=== PATIENT | female | born 1935 | race Caucasian/White ===

== ENCOUNTER → 2017-02-22 | Outpatient (CLI) | payer MEDICARE, BC ==
[2017-02-22 09:26] LABS: ABSOLUTE EOSINOPHILS # (AUTO) 0.1 10^3/uL (0.0-0.6); ABSOLUTE LYMPHOCYTES (AUTO) 1.1 10^3/uL (0.5-4.7); ABSOLUTE MONOCYTES (AUTO) 0.7 10^3/uL (0.1-1.4); ABSOLUTE NEUT (AUTO) 3.7 10^3/uL (1.7-8.2); BASOPHILS % (AUTO) 0.4 % (0-2); EOSINOPHILS % (AUTO) 2.3 % (0-6); HEMATOCRIT 46.5 % (36.0-47.0); HEMOGLOBIN 14.8 g/dL (12.0-15.5); HGB HCT DIFFERENCE -2.1; LYMPHOCYTES % (AUTO) 19.7 % (13-45); MEAN CORPUSCULAR HEMOGLOBIN 29.3 pg (27.0-33.4); MEAN CORPUSCULAR VOLUME 92 fl (80-97); MONOCYTES % (AUTO) 12.4 % (3-13); RED BLOOD COUNT 5.06 10^6/uL (3.72-5.28); RED CELL DISTRIBUTION WIDTH 13.9 % (11.5-14.0); SEGMENTED NEUTROPHILS % (AUTO) 65.2 % (42-78); WHITE BLOOD COUNT 5.6 10^3/uL (4.0-10.5)
[2017-02-22 09:58] LABS: ALANINE AMINOTRANSFERASE 20 U/L (9-52); ALBUMIN 3.8 g/dL (3.5-5.0); ALKALINE PHOSPHATASE 75 U/L (38-126); ANION GAP 9 (5-19); ASPARTATE AMINO TRANSFERASE 24 U/L (14-36); BILIRUBIN,DIRECT 0.3 mg/dL (0.0-0.4); BILIRUBIN,TOTAL 0.6 mg/dL (0.2-1.3); BLOOD UREA NITROGEN 20 mg/dL (7-20); CALCIUM 9.1 mg/dL (8.4-10.2); CARBON DIOXIDE 28 mmol/L (22-30); CHLORIDE 105 mmol/L (98-107); CHOLESTEROL 198.97 mg/dL (0-200); CREATININE RESULT 0.76 mg/dL (0.52-1.25); Direct HDL 76 mg/dL (>40); GLUCOSE 83 mg/dL (75-110); POTASSIUM 4.8 mmol/L (3.6-5.0); SODIUM 142.1 mmol/L (137-145); TOTAL PROTEIN 6.6 g/dL (6.3-8.2); TRIGLYCERIDES 78 mg/dL (<150)
[2017-02-22 10:09] LABS: DIRECT LDL 105 mg/dL (<100)
[2017-02-22 10:12] LABS: ERYTHROCYTE SEDIMENTATION RATE 3 mm/hr (0-30)
[2017-02-22 10:24] LABS: CARCINOEMBRYONIC ANTIGEN 1.9 ng/mL (<3.0)
== END ==
LOC: OD 08:37
PROVIDERS: ATTEND Internal Medicine
DX: R53.83 Other fatigue (principal); E78.5 Hyperlipidemia, unspecified; C18.9 Malignant neoplasm of colon, unspecified; M79.1 Myalgia
CPT/HCPCS: 36415; 80053; 80061; 82378; 84443; 85025; 85652

== ENCOUNTER → 2017-04-15 | Outpatient (CLI) | payer MEDICARE, BC ==
--- NOTE | 2017-04-15 13:42 | WOMENS IMAGING REPORT ---
EXAM DESCRIPTION: BONE DENSITY HIP/SPINE COMPLETED DATE/TIME: 04/15/2017 1:32 pm REASON FOR STUDY: OSTEOPROSIS; M81.0 M81.0 AGE-RELATED OSTEOPOROSIS W/O CURRENT PATHOLOGICAL FRAC COMPARISON: None. TECHNIQUE: Dual-Energy X-ray Absorptiometry (DEXA) of the AP Spine and Hip. LIMITATIONS: None. FINDINGS: LUMBAR SPINE: The bone mineral density (BMD) measured from L1-L4 in the AP projection correlates with a T-score of +0.1, which is normal as defined by the World Health Organization. Please note that the AP bone dens ity assessment includes vertebral body endplate and posterior element sclerosis HIP: The bone mineral density (BMD) measured in the left femoral neck at the hip correlates with a T-score of -2.7, which is osteoporotic as defined by the World Health Organization. IMPRESSION: 1. LUMBAR SPINE: Normal 2. HIP: Osteoporotic COMMENT: The World Health Organization defines low BMD as follows: T-score: Normal: Greater than -1.0 Osteopenia: Between -1.0 and -2.5 Osteoporosis: Less than -2.5 without fractures Established osteoporosis: Less than -2.5 with fractures In general, you may wish to consider: Diagnosis Treatment Follow-up DEXA Normal BMD Prevention 2-3 years Osteopenia Prevention/Therapy 1-2 years Osteoporosis Therapy Yearly TECHNICAL DOCUMENTATION: JOB ID: [id number]- All Rights Reserved
== END ==
LOC: WI 13:16
PROVIDERS: ATTEND Internal Medicine
DX: M81.0 Age-related osteoporosis without current pathological fracture (principal)
CPT/HCPCS: 77080

== ENCOUNTER → 2017-12-12 | Day surgery (SDC) | payer MEDICARE, BC ==
--- NOTE | 2017-12-13 14:18 | OPERATIVE REPORT E ---
Operative Report NAME: RODRÍGUEZ GAMA : 1935 AGE: 82Y DATE OF SURGERY: 12/12/2017 ROOM: PREOPERATIVE DIAGNOSIS: NEW CLUSTER OF MICROCALCIFICATIONS, BROAD BAND, UPPER OUTER QUADRANT, LEFT BREAST, 10 CM FROM THE NIPPLE. POSTOPERATIVE DIAGNOSIS: NEW CLUSTER OF MICROCALCIFICATIONS, BROAD BAND, UPPER OUTER QUADRANT, LEFT BREAST, 10 CM FROM THE NIPPLE. OPERATION: 1. Stereotactic mammotomy and multiple core biopsies, left breast. 2. Placement of clip marker. 3. Interpretation of intraoperative mammography and specimen radiograph. SURGEON: WALTER BRAVO M.D. ANESTHESIA: 1% lidocaine plain. COMPLICATIONS: None. ESTIMATED BLOOD LOSS: Minimal. DRAINS: None. TISSUE REMOVED OR ALTERED: Multiple cores, left breast. PROCEDURE: Patient brought from the waiting area to the stereotactic room in [facility] where the left breast was placed in compression. We approached the breast using a lateral direction. Target microcalcifications were easily localized as they occupied a large swath of breast parenchyma. The microcalcifications were localized, left breast exposed portion, prepped with Betadine and anesthetized with 1% plain lidocaine. A small hang was made in the skin and the Mammotome advanced to the appropriate depth. Pre and post fire film showed appropriate alignment between the tip of the Mammotome and the center of the microcalcification cluster. We completed approximately a 10-core biopsy in a circumferential fashion. Specimens were collected and placed on a CoreTrainer and imaged with the portable imaging device in the stereotactic room. This showed multiple microcalcifications acquired. We felt the sampling was sufficient and adequately represented the target tissue. A clip marker was placed uneventfully, and post clip marker deployment images showed retention of the clip in the breast parenchyma. Mammotome was removed, patient tolerated procedure well, breast kept in compression. She tolerated the procedure well. Followup instructions provided. DICTATING PHYSICIAN: WALTER BRAVO M.D. [id number] PHY#: [id number] ID: [id number] JOB#: [id number] ACCT: [id number] cc:WALTER BRAVO M.D. > [facility] [place] [facility]
--- NOTE | 2017-12-19 08:59 | WOMENS IMAGING REPORT ---
EXAM DESCRIPTION: STEREO BREAST BX; LEFT DIG DX MAMMO NO CHG COMPLETED DATE/TIME: 12/12/2017 3:26 pm; 12/12/2017 2:31 pm REASON FOR STUDY: MICROCALCIFICATIONS OF LEFT BREAST; LEFT BREAST CLIP PLACEMENT R92.0 MAMMOGRAPHIC MICROCALCIFICATION FOUND ON DX IMAGING OF COMPARISON: None. LIMITATIONS: None. PROCEDURE: Vacuum-assisted stereotactic-guided biopsy of the lesion in the left breast performed by Dr. Mendoza who also targeted the lesion. Using stereotactic guidance, a vacuum-assisted core biopsy of the targeted lesion was performed. A b arrel clip was deployed at the biopsy site. Post procedure image reveals the clip at the biopsy site . TECHNIQUE: Images from the stereotactic unit acquired during the procedure. Specimen radiography performed. No. Post- procedure image acquired post-clip placement. Yes. Post procedure 2 view mammograms performed in the mammography suite. Yes. FINDINGS: SPECIMEN RADIOGRAPH:Not provided.. POST PROCEDURE MAMMOGRAMS FOR MARKER PLACEMENT: Yes. POST PROCEDURE MAMMOGRAM: Clip is in expected location. No significant hematoma. PATHOLOGY: Ductal carcinoma in situ, high grade. CONCORDANT: Yes. The operating surgeon was notified of the findings. IMPRESSION: SUCCESSFUL STEREOTACTIC-GUIDED BIOPSY OF LESION IN THE LEFT BREAST. BIOPSY RESULTS ARE CONCORDANT WITH IMAGING FINDINGS. FOLLOW-UP: PER SURGEON TECHNICAL DOCUMENTATION: JOB ID: [id number] [employer]- All Rights Reserved Reading location - IP/workstation name: [email or web address]
== END ==
LOC: RAD 11:53
PROVIDERS: ATTEND Surgery
PROC: 0HBU3ZX Excision of Left Breast, Percutaneous Approach, Diagnostic (ICD-10-PCS; principal; 2017-12-12)
DX: D05.12 Intraductal carcinoma in situ of left breast (principal); N64.1 Fat necrosis of breast; R92.0 Mammographic microcalcification found on diagnostic imaging of breast; Z85.038 Personal history of other malignant neoplasm of large intestine
CPT/HCPCS: 19081; 88305

== ENCOUNTER 2018-01-22 08:29 | Day surgery (SDC) | payer MEDICARE, BC ==
[2018-01-15 11:01] LABS: HEMATOCRIT 42.3 % (36.0-47.0); HEMOGLOBIN 14.2 g/dL (12.0-15.5); MEAN CORPUSCULAR HGB CONC 33.6 g/dL (32.0-36.0); MEAN CORPUSCULAR VOLUME 89 fl (80-97); PLATELET COUNT 216 10^3/uL (150-450); RED BLOOD COUNT 4.74 10^6/uL (3.72-5.28); RED CELL DISTRIBUTION WIDTH 14.5 % (11.5-14.0); WHITE BLOOD COUNT 5.9 10^3/uL (4.0-10.5)
[2018-01-15 11:24] LABS: ANION GAP 11 (5-19); BLOOD UREA NITROGEN 20 mg/dL (7-20); CALCIUM 9.4 mg/dL (8.4-10.2); CARBON DIOXIDE 29 mmol/L (22-30); CHLORIDE 105 mmol/L (98-107); GLUCOSE 92 mg/dL (75-110); POTASSIUM 4.9 mmol/L (3.6-5.0); SODIUM 144.6 mmol/L (137-145)
--- NOTE | 2018-01-15 13:10 | EKG REPORT ---
SEVERITY:- ABNORMAL ECG - SINUS RHYTHM RIGHT BUNDLE BRANCH BLOCK : Confirmed by: Jackson Rodriguez MD 15-Jan-2018 13:09:36
[~2018-01-22 08:29] MED LIST: CEFAZOLIN 1 GM/D5W RTU 1 GM/50 ML RTUPB IV PRN; LACTATED RINGERS 1000 ML IV PRN; LIDOCAINE 0.5% INJ-PF (5 MG/ML) 50 ML SDV SUBCUT PRN; LIDOCAINE 4% TRANSPARENT DRESSING 5 GM KIT TP PRN
[2018-01-22] MEDS ORDERED: MICROFIBRILLAR COLLAGEN 1 GM PACK ONE (11:20)
[2018-01-22] MEDS ORDERED: METHYLENE BLUE 50 MG/10 ML AMPULE ONE (11:20)
[2018-01-22] MEDS ORDERED: LIDOCAINE 1%/EPINEPHRINE INJ 20 ML VIAL ONE (11:21)
[2018-01-22] MEDS ORDERED: LIDOCAINE 1% INJ-PF (10 MG/ML) 30 ML SDV ONE (11:22)
--- NOTE | 2018-01-22 11:32 | RADIOLOGY REPORT (SQ) ---
EXAM DESCRIPTION: NM LYMPHATICS/LYMPH GLANDS COMPLETED DATE/TIME: 01/22/2018 10:39 am REASON FOR STUDY: SENTINAL NODE MAPPING BREAST CANCER C50.912 MALIGNANT NEOPLASM OF UNSPECIFIED SI TE OF LEFT FEMAL COMPARISON: Stereotactic biopsy 12/12/2017 RADIONUCLIDE AND DOSE: 557 microcuries TC-99m tilmanocept - Lymphoseek. The route of agent administration: Subcutaneous in the skin. TECHNIQUE: The skin of the left breast was prepped in sterile fashion. The radiopharmaceutical was administered in equally divided doses in the periareolar breast. LIMITATIONS: None. FINDINGS: Images demonstrate activity at the injection site. There is migration toward the left axi lla. IMPRESSION: ADMINISTRATION OF RADIOPHARMACEUTICAL FOR SENTINEL LYMPH NODE EVALUATION. TECHNICAL DOCUMENTATION: JOB ID: [id number] [employer]- All Rights Reserved Reading location - IP/workstation name: [email or web address]
[2018-01-22] MEDS ORDERED: FENTANYL CITRATE INJ/PF 100 MCG/2 ML AMPUL ONE (12:27)
[2018-01-22] MEDS ORDERED: MIDAZOLAM 2 MG/2 ML INJ ONE (12:27)
[2018-01-22] MEDS ORDERED: PROPOFOL INJ 200 MG/20 ML VIAL IV ONE (12:27)
[2018-01-22] MEDS ORDERED: SUCCINYLCHOLINE CHLORIDE INJ 200 MG/10 ML VIAL ONE (12:32)
[2018-01-22] MEDS ORDERED: FENTANYL CITRATE INJ/PF 100 MCG/2 ML AMPUL IV PRN ×3 (12:59)
[2018-01-22] MEDS ORDERED: OXYCODONE-ACETAMINOPHEN 5-325 MG TABLET PO PRN ×3 (12:59→14:17)
[2018-01-22] MEDS ORDERED: PROMETHAZINE HCL INJ 25 MG/1 ML VIAL IV PRN ×2 (12:59)
[2018-01-22] MEDS ORDERED: DIPHENHYDRAMINE HCL 50 MG/ML VIAL IV PRN (12:59)
[2018-01-22] MEDS ORDERED: MEPERIDINE HCL/PF INJ 25 MG/1 ML DISP.SYRIN IV PRN (12:59)
--- NOTE | 2018-01-22 14:17 | Discharge Summary ---
Discharge Summary (SDC) - Discharge Final Diagnosis: left breast cancer Date of Surgery: 01/22/18 Discharge Date: 01/22/18 Condition: Stable Treatment or Instructions: [facility] [address], [place] [address] Care Instructions Following Your Lumpectomy Activities: Resume normal activities when you feel comfortable. It is best to remain as active as possible to speed your recovery. It is common to experience some fatigue after surgery and you may find that short naps are helpful. Avoid strenuous activity such as weight lifting, tennis, etc at your surgical site for two weeks. Perform gentle arm exercises daily and do not favor your operative arm to due increased risk of mobility issues postoperatively. No driving for 7 days after surgery. Do not drive if you are taking pain medication other than Tylenol or Ibuprofen. No swimming, tub baths or soaking in a hot tub for 2 weeks. There are no dietary restrictions. Do not smoke as this impairs wound healing. Surgical Site care: You may shower in 24 hours to include washing the wound with soap and water using your hands. Do not scrub the incision. Pat the area dry with a towel. You do not need to recover the wound although some patients find that they feel more comfortable using a light dressing for a few days to absorb any minimal drainage which may occur. You may apply deodorant if you are careful to avoid getting it on the wound itself. Medications: Take Toradol 10 mg one tablet every six hours as needed for pain. You may take over the counter Tylenol if you are not taking either Tylenol #3 or Percocet. Resume all of your normal prescription medications after your surgery unless instructed otherwise. You may experience constipation after surgery while taking pain medications. If using a narcotic on a regular basis, take a stool softener such as Colace twice a day. It is helpful to stay hydrated by drinking lots of fluids. Walking is also helpful and is good exercise after surgery. If you need extra help, use Milk of Magnesia according to the directions on the package. Follow-up: Call our office at to make a follow-up appointment in 10-14 days. Your doctor will call to discuss the pathology report with you as soon as it is available. Concerns: If you had a sentinel lymph node biopsy with your mastectomy, your urine may have a greenish discoloration. This is normal and will resolve as the blue dye slowly leaves your system. If you notice significant leakage around the drains , this is not normal. The drains may be clogged. Please call our office to come in immediately for the drains to be checked. Some bruising may occur and will go away over time. If you have a fever of 101.5 or greater, chills, redness at the incision site, excessive drainage from your wound or severe pain not relieved by pain medication, call your doctor. A physician is available 24 hours a day 7 days a week in addition to regular office hours. If problems arise after normal office hours please call the hospital at . Please call if you have any questions or concerns. Prescriptions: Ketorolac Tromethamine [Toradol 10 mg Tablet] 10 mg PO Q6HP PRN #20 tablet PRN Reason: Referrals: YOLANDA MAC MD [Primary Care Provider] - Discharge Activity: Activity As Tolerated, Walk Frequently Report the Following to Your Physician Immediately: Increase in Pain, Fever over 101 Degrees, Unusual Bleeding, Redness, Swelling, Warmth, Increased Soreness, Drainage-Foul Smelling
--- NOTE | 2018-01-22 14:22 | Operative Report ---
Operative Report DATE OF SURGERY: 01/22/18 PREOPERATIVE DIAGNOSIS: High-grade DCIS left breast POSTOPERATIVE DIAGNOSIS: Same OPERATION: 1. Left breast lumpectomy following needle localization. 2. [place] lymph node biopsy left axilla using dual mapping technique SURGEON: WALTER MENDOZA 1ST V BELT BUILDER: LULI ARGUETA ANESTHESIA: GA TISSUE REMOVED OR ALTERED: 1. Left breast open lumpectomy specimen with needle , wires, clip marker and target microcalcifications. 2. [place] lymph node 2 left axilla COMPLICATIONS: None ESTIMATED BLOOD LOSS: Scant INTRAOPERATIVE FINDINGS: See below PROCEDURE: Patient was seen in the preop holding area where the left breast was marked. She previously undergone lymphoscintigraphy left breast and axilla, as well as the localization of the target microcalcifications in the lateral aspect by Dr. Bird using 3 needles. She is taking the main operating room where general anesthesia was induced. Left arm was abducted left breast exposed. All 3 localization needles were clipped at the needle Shailesh; the left breast was now injected with 3 cc of full- strength methylene blue intradermally at the 2 o'clock position left breast area Miracle border. The left breast was massaged. The left breast and axilla were prepped and draped in sterile fashion. Surgical plan surgical timeout were again conducted. With intraoperative viewing of the needle localization mammography, we planned a lateral transverse incision to complete all 3 needles and wires. Skin was anesthetized with 1% plain lidocaine. A very narrow ellipse of skin was incised encompassing all 3. Superior inferior lateral medial skin flaps were raised, and a generous lumpectomy specimen was now excised from the left lateral breast using electrocautery. The lumpectomy specimen included all 3 needles in all 3 wires. We now took the specimen onto the back table, placed a short stitch in the superior skin, along stitch in the lateral aspect of the specimen, then took intraoperative specimen radiographs. The radiographs were reviewed by Dr. Mendoza, as well as Dr. Bird, radiologist and felt to represent the left breast lumpectomy specimen, with the target microcalcifications, previously placed stereotactic clip, and all 3 localization needles and wires. We now performed the sentinel lymph node biopsy portion of the operation. An area of increased activity was identified in the low axilla. Skin was anesthetized 1% plain lidocaine, 2 cm incision was made along the skin fold in the lower axilla. A cluster 2 lymph nodes was identified, blue and hot with an in vivo count 4000; 2 nodes were removed in continuity using electrocautery and gentle hemostat dissection. Once the specimens were removed, a 10 second ex vivo count revealed a total of approximately 5000. We returned to the axilla and check for any significant residual counts and there were none. We felt the sentinel lymph node biopsy portion of the operation was complete. Avitene was placed in the recesses of the left breast lumpectomy cavity, both wounds closed with 3-0 Vicryl, Dermabond glue. Patient tolerated the procedure well, and taken to the recovery room in stable condition. The physician assistant professor of economics, Ms. Sullivan, provided assistance during this case by: Assisting retracting tissue, instillation of local anesthesia and closure of skin incisions.
[2018-01-22 16:18] VITALS: BP 162/68
--- NOTE | 2018-01-22 16:51 | RADIOLOGY REPORT (SQ) ---
EXAM DESCRIPTION: BREAST SPECIMEN COMPLETED DATE/TIME: 01/22/2018 2:27 pm REASON FOR STUDY: BREAST SPECIMEN BX LEFT BREAST C50.912 MALIGNANT NEOPLASM OF UNSPECIFIED SITE OF LEFT FEMAL COMPARISON: None. TECHNIQUE: Specimen radiograph from breast procedure performed in the operating room. LIMITATIONS: None. FINDINGS: Specimen radiograph from breast procedure performed in the operating room. Please see procedure note for details and final pathology. Calcifications of concern are included i n the specimen as well as the stereotactic clip from prior biopsy 12/12/2017. These findings were dis cussed with Dr. Mendoza IMPRESSION: Specimen radiograph. TECHNICAL DOCUMENTATION: JOB ID: [id number] Reading location - IP/workstation name: [email or web address]
--- NOTE | 2018-01-22 16:55 | WOMENS IMAGING REPORT ---
EXAM DESCRIPTION: WIRE LOC MAMMO; LEFT DIAGNOSTIC MAMMO W/CAD COMPLETED DATE/TIME: 01/22/2018 1:00 pm; 01/22/2018 3:49 pm REASON FOR STUDY: LEFT BREAST LOCALIZATION C50.912 MALIGNANT NEOPLASM OF UNSPECIFIED SITE OF LEFT F EMAL COMPARISON: Post stereotactic biopsy mammograms 12/12/2017 TECHNIQUE: The calcifications of concern in the left breast were localized mammographically using a grid marker. The skin of the breast was prepped in sterile fashion and local anesthesia was provide d. The patient has a broad area of DCIS in the upper-outer quadrant left breast involving about a 7 cm a echo. Three 5 cm needles were placed from a lateral to medial approach, marking the deep aspect of t he calcifications near the pectoralis muscle, marking the stereotactic biopsy clip, and marking the a nterior most edge of the calcifications of concern. The localization needles were advanced to the ta rget. The tip was positioned adjacent to the target and confirmed with two orthogonal views. The wi res were placed through the needle and the hook wires engaged. Post procedure mammogram demonstrates satisfactory position of the needles and wires. Specimen radiograph dictated separately LIMITATIONS: None. FINDINGS: Procedure as above. Pathology: Pending. IMPRESSION: SUCCESSFUL NEEDLE LOCALIZATION OF THE LESION IN THE LEFT BREAST. FOLLOW-UP PER THE Donato PEREYRA'S SURGEON. TECHNICAL DOCUMENTATION: JOB ID: [id number] [employer]- All Rights Reserved Reading location - IP/workstation name: [email or web address]
--- NOTE | 2018-01-22 16:55 | WOMENS IMAGING REPORT ---
EXAM DESCRIPTION: WIRE LOC MAMMO; LEFT DIAGNOSTIC MAMMO W/CAD COMPLETED DATE/TIME: 01/22/2018 1:00 pm; 01/22/2018 3:49 pm REASON FOR STUDY: LEFT BREAST LOCALIZATION C50.912 MALIGNANT NEOPLASM OF UNSPECIFIED SITE OF LEFT F EMAL COMPARISON: Post stereotactic biopsy mammograms 12/12/2017 TECHNIQUE: The calcifications of concern in the left breast were localized mammographically using a grid marker. The skin of the breast was prepped in sterile fashion and local anesthesia was provide d. The patient has a broad area of DCIS in the upper-outer quadrant left breast involving about a 7 cm a echo. Three 5 cm needles were placed from a lateral to medial approach, marking the deep aspect of t he calcifications near the pectoralis muscle, marking the stereotactic biopsy clip, and marking the a nterior most edge of the calcifications of concern. The localization needles were advanced to the ta rget. The tip was positioned adjacent to the target and confirmed with two orthogonal views. The wi res were placed through the needle and the hook wires engaged. Post procedure mammogram demonstrates satisfactory position of the needles and wires. Specimen radiograph dictated separately LIMITATIONS: None. FINDINGS: Procedure as above. Pathology: Pending. IMPRESSION: SUCCESSFUL NEEDLE LOCALIZATION OF THE LESION IN THE LEFT BREAST. FOLLOW-UP PER THE Donato PEREYRA'S SURGEON. TECHNICAL DOCUMENTATION: JOB ID: [id number] [employer]- All Rights Reserved Reading location - IP/workstation name: [email or web address]
== END 2018-01-22 16:20 | disposition home or self-care (01) ==
LOC: OROUT 08:29
PROVIDERS: ATTEND Surgery
DX: C50.812 Malignant neoplasm of overlapping sites of left female breast (principal); Z17.0 Estrogen receptor positive status [ER+]; M19.90 Unspecified osteoarthritis, unspecified site; C44.90 Unspecified malignant neoplasm of skin, unspecified; Z85.038 Personal history of other malignant neoplasm of large intestine; Z79.899 Other long term (current) drug therapy; Z90.49 Acquired absence of other specified parts of digestive tract
CPT/HCPCS: 93005; 36415; 85027; 80048; 88342 ×2; 88307 ×2; 78195; 93010; 19281; 76098; 77065; 19301; 38500; A9520; J2250; J0690; J3010; J3490 ×4; J0330; J2704; Q9968; 400

== ENCOUNTER → 2018-02-27 | Outpatient (CLI) | payer MEDICARE, BC | LOC: OD 15:08 | PROVIDERS: ATTEND Physician Assistant Surgical | DX: N64.89 Other specified disorders of breast (principal) | CPT/HCPCS: 87070; 87075; 87205 ==

== ENCOUNTER → 2018-06-09 | Outpatient (CLI) | payer MEDICARE, BC ==
[2018-06-09 16:10] LABS: ABSOLUTE EOSINOPHILS # (AUTO) 0.1 10^3/uL (0.0-0.6); ABSOLUTE LYMPHOCYTES (AUTO) 1.3 10^3/uL (0.5-4.7); ABSOLUTE MONOCYTES (AUTO) 0.7 10^3/uL (0.1-1.4); ABSOLUTE NEUT (AUTO) 4.8 10^3/uL (1.7-8.2); BASOPHILS % (AUTO) 0.3 % (0-2); EOSINOPHILS % (AUTO) 0.8 % (0-6); HEMATOCRIT 44.1 % (36.0-47.0); HEMOGLOBIN 14.9 g/dL (12.0-15.5); LYMPHOCYTES % (AUTO) 19.3 % (13-45); MEAN CORPUSCULAR HEMOGLOBIN 29.9 pg (27.0-33.4); MEAN CORPUSCULAR HGB CONC 33.8 g/dL (32.0-36.0); MEAN CORPUSCULAR VOLUME 89 fl (80-97); MONOCYTES % (AUTO) 10.1 % (3-13); PLATELET COUNT 236 10^3/uL (150-450); RED BLOOD COUNT 4.98 10^6/uL (3.72-5.28); RED CELL DISTRIBUTION WIDTH 13.6 % (11.5-14.0); SEGMENTED NEUTROPHILS % (AUTO) 69.5 % (42-78); TOTAL CELLS COUNTED % (AUTO) 100 %; WHITE BLOOD COUNT 6.9 10^3/uL (4.0-10.5)
[2018-06-09 16:46] LABS: ALANINE AMINOTRANSFERASE 27 U/L (9-52); ALBUMIN 3.9 g/dL (3.5-5.0); ALKALINE PHOSPHATASE 79 U/L (38-126); ANION GAP 7 (5-19); ASPARTATE AMINO TRANSFERASE 26 U/L (14-36); BILIRUBIN,DIRECT 0.2 mg/dL (0.0-0.4); BILIRUBIN,TOTAL 0.6 mg/dL (0.2-1.3); BLOOD UREA NITROGEN 18 mg/dL (7-20); CALCIUM 10.4 mg/dL (8.4-10.2); CARBON DIOXIDE 31 mmol/L (22-30); CHLORIDE 102 mmol/L (98-107); GLUCOSE 85 mg/dL (75-110); POTASSIUM 4.9 mmol/L (3.6-5.0); SODIUM 139.7 mmol/L (137-145); TOTAL PROTEIN 6.8 g/dL (6.3-8.2)
== END ==
LOC: OD 15:29
PROVIDERS: ATTEND Internal Medicine
DX: J32.9 Chronic sinusitis, unspecified (principal); R53.83 Other fatigue
CPT/HCPCS: 36415; 80053; 84443; 85025

== ENCOUNTER → 2018-06-11 | Outpatient (CLI) | payer MEDICARE, BC ==
--- NOTE | 2018-06-11 15:19 | RADIOLOGY REPORT (SQ) ---
EXAM DESCRIPTION: CT FACIAL AREA WITHOUT COMPLETED DATE/TIME: 06/11/2018 2:56 pm REASON FOR STUDY: CHRONIC SINUSITIS, UNSPECIFIED J32.9 CHRONIC SINUSITIS, UNSPECIFIED COMPARISON: None. TECHNIQUE: Noncontrast scanning through the paranasal sinuses using bone algorithm. Reconstructed MPR images reviewed. All images stored on PACS. All CT scanners at this facility use dose modulation, iterative reconstruction, and/or weight based d osing when appropriate to reduce radiation dose to as low as reasonably achievable (ALARA). [facility]: Dose Right [facility]: CareDose [facility]: Dose Right [facility]: Teradose 4D [facility]: devsisters RADIATION DOSE: mGy. LIMITATIONS: None. FINDINGS: The paranasal sinuses are well developed. No fluid levels. Infundibula and nasofrontal r ecesses are patent. Small Dago air cell on the right. Mild mucosal thickening left maxillary sinu s. Mild sigmoid deviation of the nasal septum. IMPRESSION: Mild chronic changes in the left maxillary sinus. TECHNICAL DOCUMENTATION: JOB ID: [id number] Quality ID # [id number]: Final reports with documentation of one or more dose reduction techniques (e.g., Au tomated exposure control, adjustment of the mA and/or kV according to patient size, use of iterative reconstruction technique) 2010 [employer]- All Rights Reserved Reading location - IP/workstation name: [email or web address] / [email or web address]
== END ==
LOC: RAD 14:22
PROVIDERS: ATTEND Internal Medicine
DX: J32.0 Chronic maxillary sinusitis (principal)
CPT/HCPCS: 70486

== ENCOUNTER → 2018-06-19 | Outpatient (CLI) | payer MEDICARE, BC | LOC: OD 09:17 | PROVIDERS: ATTEND Internal Medicine | DX: E83.52 Hypercalcemia (principal) | CPT/HCPCS: 36415; 83970 ==

== ENCOUNTER → 2019-03-02 | Outpatient (CLI) | payer MEDICARE, BC ==
--- NOTE | 2019-03-02 12:35 | RADIOLOGY REPORT (SQ) ---
EXAM DESCRIPTION: CHEST 2 VIEWS COMPLETED DATE/TIME: 03/02/2019 12:00 pm REASON FOR STUDY: COUGH, LLL BRONCHITIS COMPARISON: Chest films 08/29/2015, 07/06/2014, 02/08/2011 EXAM PARAMETERS: NUMBER OF VIEWS: two views TECHNIQUE: Digital Frontal and Lateral radiographic views of the chest acquired. RADIATION DOSE: NA LIMITATIONS: none FINDINGS: LUNGS AND PLEURA: Minimal bibasilar atelectasis. Lungs are otherwise hyperlucent and hyperinflated from obstructive disease. No gross pulmonary nodul e. No pneumothorax. MEDIASTINUM AND HILAR STRUCTURES: No masses or contour abnormalities. HEART AND VASCULAR STRUCTURES: Heart normal size. No evidence for failure. BONES: No acute findings. HARDWARE: None in the chest. OTHER: No other significant finding. IMPRESSION: Bibasilar atelectasis. TECHNICAL DOCUMENTATION: JOB ID: [id number] [employer]- All Rights Reserved Reading location - IP/workstation name: [email or web address]
== END ==
LOC: RAD 11:37
PROVIDERS: ATTEND Internal Medicine
DX: J98.11 Atelectasis (principal); R05 Cough
CPT/HCPCS: 71046

== ENCOUNTER 2019-06-16 07:42 | Emergency (ER) | payer MEDICARE, BC ==
[2019-06-16] MEDS ORDERED: FENTANYL CITRATE INJ/PF 100 MCG/2 ML AMPUL IV ONE (08:27)
[2019-06-16] MEDS ORDERED: ONDANSETRON HCL INJ/PF 4 MG/2 ML SDV IV ONE ×2 (08:27→12:43)
--- NOTE | 2019-06-16 09:01 | ER Document Report ---
ED GI/ - General Chief Complaint: Abdominal Pain Stated Complaint: ABDOMINAL PAIN Time Seen by Provider: 06/16/19 08:15 Primary Care Provider: YOLANDA MAC MD [Primary Care Provider] - Follow up tomorrow WALTER BRAVO MD [ACTIVE STAFF] - Follow up tomorrow Information source: Patient Notes: Patient presents complaining of right lower quadrant abdominal pain that woke her up shortly after midnight last night. Patient states that she has had nausea and diarrhea x3 episodes. Patient complains of feeling weak. Patient denies any fever or urinary symptoms. Patient does report a previous history of colon cancer with surgery although states that she has been in remission and is not currently undergoing any chemotherapy. Patient does report a previous history of appendectomy as well. TRAVEL OUTSIDE OF THE [place] IN LAST 30 DAYS: No - HPI Patient complains to provider of: Abdominal pain, Diarrhea. No: Vomiting Onset: This morning Timing/Duration: Sudden Quality of pain: Other - Soreness Pain Level: 3 Location: RLQ Vaginal bleeding (Compared to normal period): None - Related Data Allergies/Adverse Reactions: adhesive tape Allergy (Verified 06/16/19 07:58) PEELS OF MY SKIN ADHESI Allergy (Uncoded 06/16/19 07:58) IVP DYE Allergy (Uncoded 06/16/19 07:58) HIVES,RASH Past Medical History - General Information source: Patient - Social History Smoking Status: Never Smoker Chew tobacco use (# tins/day): No Frequency of alcohol use: None Drug Abuse: None Lives with: Family Family History: Reviewed & Not Pertinent Patient has suicidal ideation: No Patient has homicidal ideation: No - Past Medical History Cardiac Medical History: Reports: Hx Hypertension Denies: Hx Coronary Artery Disease, Hx Heart Attack Neurological Medical History: Denies: Hx Cerebrovascular Accident, Hx Seizures Malignancy Medical History: Reports: Hx Breast Cancer, Hx Colorectal Cancer GI Medical History: Reports: Hx Gastroesophageal Reflux Disease Infectious Medical History: Denies: Hx Hepatitis Past Surgical History: Reports: Hx Appendectomy, Hx Bowel Surgery, Hx Hysterectomy, Hx Tubal Ligation - Immunizations Hx Diphtheria, Pertussis, Tetanus Vaccination: No Hx Pneumococcal Vaccination: 05/26/17 Review of Systems - Review of Systems Constitutional: No symptoms reported. denies: Fever EENT: No symptoms reported Cardiovascular: No symptoms reported. denies: Chest pain Respiratory: No symptoms reported. denies: Cough, Short of breath Gastrointestinal: Abdominal pain, Diarrhea, Nausea. denies: Vomiting Genitourinary: No symptoms reported. denies: Dysuria, Flank pain Female Genitourinary: No symptoms reported Musculoskeletal: No symptoms reported. denies: Back pain Skin: No symptoms reported Hematologic/Lymphatic: No symptoms reported Neurological/Psychological: No symptoms reported Physical Exam - Vital signs Vitals: Temp Pulse Resp BP Pulse Ox 97.4 F 59 L 18 151/56 H 97 06/16/19 07:47 06/16/19 07:47 06/16/19 07:47 06/16/19 07:47 06/16/19 07:47 - General General appearance: Appears well, Alert In distress: None Notes: Appears younger than stated age - HEENT Head: Normocephalic Eyes: Normal Conjunctiva: Normal Nasal: Normal Mouth/Lips: Normal Neck: Normal, Supple. No: Lymphadenopathy - Respiratory Respiratory status: No respiratory distress Chest status: Nontender Breath sounds: Normal. No: Rales, Rhonchi, Stridor, Wheezing Chest palpation: Normal - Cardiovascular Rhythm: Regular Heart sounds: S1 appreciated, S2 appreciated Murmur: No - Abdominal Inspection: Normal Distension: No distension Bowel sounds: Normal Tenderness: Tender - RLQ. No: Hamilton's sign Organomegaly: No organomegaly - Back Back: Normal, Nontender. No: CVA tenderness - Extremities General upper extremity: Normal inspection, Normal ROM General lower extremity: Normal inspection, Normal ROM - Neurological Neuro grossly intact: Yes Cognition: Normal Norton Coma Scale Eye Opening: Spontaneous Norton Coma Scale Verbal: Oriented Norton Coma Scale Motor: Obeys Commands Norton Coma Scale Total: 15 - Psychological Associated symptoms: Normal affect, Normal mood - Skin Skin Temperature: Warm Skin Color: Normal Course - Re-evaluation Re-evalutation: 06/16/19 10:[address] Odell hutton who recommends consultation with surgery regarding concern about possible partial bowel obstruction. Spoke with Dr. Lea who does agree to evaluate patient. Recommends hydrating patient at this time. 06/16/19 12:[address] Lea who agrees to evaluate patient. 06/16/19 13:23 Dr. Lea evaluated patient. Reviewed patient's diagnostic tests as well as her CT images. Recommends p.o. challenge and if patient is able to tolerate oral fluids recommends outpatient follow-up with the surgical clinic so that they can set her up for a colonoscopy. No concern for obstruction at this time. 06/16/19 14:34 Patient able to tolerate juice and crackers without any emesis. Patient reports feeling better at this time. Discussed plan of care with patient and family member at bedside. Patient verbalized understanding and agrees with plan of care. - Vital Signs Vital signs: Temp Pulse Resp BP Pulse Ox 97.4 F 59 L 23 H 114/51 L 94 06/16/19 07:47 06/16/19 07:47 06/16/19 14:01 06/16/19 14:01 06/16/19 14:01 - Laboratory Result Diagrams: 06/16/19 09:00 06/16/19 09:00 Laboratory results interpreted by me: 06/16/19 06/16/19 06/16/19 09:00 09:00 11:15 RDW 14.1 H Lymph % (Auto) 8.0 L Seg Neutrophils % 83.0 H Carbon Dioxide 32 H BUN 24 H Urine Ketones TRACE H Labs- Entire Visit 06/16/19 06/16/19 06/16/19 09:00 09:00 11:15 WBC 8.6 RBC 5.04 Hgb 14.9 Hct 44.9 MCV 89 MCH 29.5 MCHC 33.1 RDW 14.1 H Plt Count 238 Lymph % (Auto) 8.0 L Mcdonough % (Auto) 8.5 Eos % (Auto) 0.3 Baso % (Auto) 0.2 Absolute Neuts (auto) 7.2 Absolute Lymphs (auto) 0.7 Absolute Monos (auto) 0.7 Absolute Eos (auto) 0.0 Absolute Basos (auto) 0.0 Seg Neutrophils % 83.0 H Sodium 139.1 Potassium 4.7 Chloride 102 Carbon Dioxide 32 H Anion Gap 5 BUN 24 H Creatinine 0.79 Est GFR ( Amer) > 60 Est GFR (MDRD) Non-Af > 60 Glucose 99 Calcium 9.6 Total Bilirubin 0.7 Direct Bilirubin 0.0 Neonat Total Bilirubin Not Reportable Neonat Direct Bilirubin Not Reportable Neonat Indirect Bili Not Reportable AST 27 ALT 15 Alkaline Phosphatase 74 Total Protein 6.6 Albumin 3.7 Lipase 91.0 Urine Color YELLOW Urine Appearance CLOUDY Urine pH 8.0 Ur Specific Organ 1.013 Urine Protein NEGATIVE Urine Glucose (UA) NEGATIVE Urine Ketones TRACE H Urine Blood NEGATIVE Urine Nitrite (Reflex) NEGATIVE Urine Bilirubin NEGATIVE Urine Urobilinogen NEGATIVE Leukocyte Esterase Rfl NEGATIVE Urine RBC (Auto) 1 U Hyaline Cast (Auto) 1 Urine Bacteria (Auto) TRACE Urine WBC (Reflex) 5 Squamous Epi Cells Auto 1 Urine Mucus (Auto) RARE Urine Ascorbic Acid NEGATIVE - Diagnostic Test Radiology reviewed: Reports reviewed Discharge - Discharge Clinical Impression: Nausea Diarrhea Qualifiers: Diarrhea type: unspecified type Qualified Code(s): R19.7 - Diarrhea, unspecified Abdominal pain Qualifiers: Abdominal location: right lower quadrant Qualified Code(s): R10.31 - Right lower quadrant pain Condition: Stable Disposition: HOME, SELF-CARE Instructions: Abdominal Pain ([facility]), Antinausea Medication ([facility]), Bowel Obstruction ([facility]) Additional Instructions: Return immediately for any new or worsening symptoms Followup with your primary care provider, call tomorrow to make a followup appointment Follow-up with the surgical clinic, Dr. Lea recommended that you have a colonoscopy for further evaluation. Referrals: YOLANDA MAC MD [Primary Care Provider] - Follow up tomorrow WALTER BRAVO MD [ACTIVE STAFF] - Follow up tomorrow
[2019-06-16 09:15] LABS: ABSOLUTE LYMPHOCYTES (AUTO) 0.7 10^3/uL (0.5-4.7); ABSOLUTE MONOCYTES (AUTO) 0.7 10^3/uL (0.1-1.4); ABSOLUTE NEUT (AUTO) 7.2 10^3/uL (1.7-8.2); BASOPHILS % (AUTO) 0.2 % (0-2); EOSINOPHILS % (AUTO) 0.3 % (0-6); HEMATOCRIT 44.9 % (36.0-47.0); HEMOGLOBIN 14.9 g/dL (12.0-15.5); MEAN CORPUSCULAR HEMOGLOBIN 29.5 pg (27.0-33.4); MEAN CORPUSCULAR HGB CONC 33.1 g/dL (32.0-36.0); MEAN CORPUSCULAR VOLUME 89 fl (80-97); MONOCYTES % (AUTO) 8.5 % (3-13); PLATELET COUNT 238 10^3/uL (150-450); RED BLOOD COUNT 5.04 10^6/uL (3.72-5.28); RED CELL DISTRIBUTION WIDTH 14.1 % (11.5-14.0); TOTAL CELLS COUNTED % (AUTO) 100 %; WHITE BLOOD COUNT 8.6 10^3/uL (4.0-10.5)
--- NOTE | 2019-06-16 09:22 | RADIOLOGY REPORT (SQ) ---
EXAM DESCRIPTION: CT ABD/PELVIS NO ORAL OR IV COMPLETED DATE/TIME: 06/16/2019 8:58 am REASON FOR STUDY: RLQ pain, hx appy, colon/breast ca COMPARISON: 07/28/2014 TECHNIQUE: CT scan of the abdomen and pelvis performed without intravenous or oral contrast. Images reviewed with lung, soft tissue, and bone windows. Reconstructed coronal and sagittal MPR images revi ewed. All images stored on PACS. All CT scanners at this facility use dose modulation, iterative reconstruction, and/or weight based d osing when appropriate to reduce radiation dose to as low as reasonably achievable (ALARA). [facility]: Dose Right [facility]: CareDose [facility]: Dose Right [facility]: Teradose 4D [facility]: [employer] RADIATION DOSE: CT Rad equipment meets quality standard of care and radiation dose reduction techniq ues were employed. CTDIvol: 6.8 mGy. DLP: 338 mGy-cm.mGy. LIMITATIONS: None. FINDINGS: LOWER CHEST: Left basilar scarring or atelectasis. No nodules or infiltrates. NON-CONTRASTED LIVER, SPLEEN, ADRENALS: Evaluation limited by lack of IV contrast. No identified sign ificant masses. PANCREAS: No masses. No peripancreatic inflammatory changes. GALLBLADDER: No identified stones by CT criteria. No inflammatory changes to suggest cholecystitis. RIGHT KIDNEY AND URETER: No suspicious masses. Assessment limited by lack of IV contrast. No signif icant calcifications. No hydronephrosis or hydroureter. LEFT KIDNEY AND URETER: No suspicious masses. Assessment limited by lack of IV contrast. No signifi cant calcifications. No hydronephrosis or hydroureter. AORTA AND RETROPERITONEUM: No aneurysm. No retroperitoneal masses or adenopathy. Calcific atheroscle rosis. BOWEL AND PERITONEAL CAVITY: Postoperative findings of a right colectomy. The most distal small diana l and colon are decompressed. There are loops of fecalized small bowel in the low abdomen proximal t o the anastomosis measuring up to 3.0 cm (series 3, image 51, series 601, image 41). Sigmoid diverti culosis. APPENDIX: Surgically absent. PELVIS, BLADDER, AND ABDOMINAL WALL:No abnormal masses. Status post hysterectomy. No free fluid. Bl adder normal. BONES: No significant findings. OTHER: No other significant finding. IMPRESSION: 1. Postoperative findings of a right colectomy. The most distal small bowel and colon a re decompressed. There are loops of fecalized small bowel in the low abdomen proximal to the anastom osis measuring up to 3.0 cm (series 3, image 51, series 601, image 41). Findings are concerning for partial obstruction at or near the anastomosis. Bowel transit may be further interrogated by fluoros copic small bowel follow-through if desired. 2. Sigmoid diverticulosis. COMMENT: Quality ID # [id number]: Final reports with documentation of one or more dose reduction techniques (e.g., Automated exposure control, adjustment of the mA and/or kV according to patient size, use of iterative reconstruction technique) TECHNICAL DOCUMENTATION: JOB ID: [id number] [employer]- All Rights Reserved Reading location - IP/workstation name: [email or web address]
[2019-06-16 09:31] LABS: ALBUMIN 3.7 g/dL (3.5-5.0); ALKALINE PHOSPHATASE 74 U/L (38-126); ANION GAP 5 (5-19); ASPARTATE AMINO TRANSFERASE 27 U/L (14-36); BILIRUBIN,TOTAL 0.7 mg/dL (0.2-1.3); BLOOD UREA NITROGEN 24 mg/dL (7-20); CALCIUM 9.6 mg/dL (8.4-10.2); CARBON DIOXIDE 32 mmol/L (22-30); CHLORIDE 102 mmol/L (98-107); GLUCOSE 99 mg/dL (75-110); POTASSIUM 4.7 mmol/L (3.6-5.0); TOTAL PROTEIN 6.6 g/dL (6.3-8.2)
[2019-06-16] MEDS ORDERED: NORMAL SALINE 1000 ML 1,000 ML IV ONE (10:00)
[2019-06-16 11:29] LABS: APPEARANCE,URINE CLOUDY; BILIRUBIN,URINE NEGATIVE (NEGATIVE); COLOR,URINE YELLOW; GLUCOSE, URINE NEGATIVE (NEGATIVE); KETONES,URINE TRACE mg/dL (NEGATIVE); PROTEIN,URINE NEGATIVE (NEGATIVE); URINE SPECIFIC GRAVITY 1.013; UROBILINOGEN,URINE NEGATIVE mg/dL (<2.0)
[2019-06-16 14:58] VITALS: BP 114/51
--- NOTE | 2019-06-16 17:48 | PDOC CONSULTATION ---
Consultation Consult Date: 06/16/19 Provider Consulted: KARMEN HOWARD Consult reason:: Partial bowel obstruction on CT scan History of Present Illness Admission Date/PCP: YOLANDA MAC MD History of Present Illness: RODRÍGUEZ GAMA is a 84 year old female complaining of severe pains along the right lower quadrant area of the abdomen early this morning. Denies any nausea vomiting diarrhea no constipation. She has pain medication given in the ED and that she feels a lot more comfortable when examined. CT scan of the abdomen was reviewed which showed partial obstruction of the area of the ileal colic anastomosis. Patient had a previous right colon resection for cancer in the past. Denies any fever chills diarrhea constipation nor weight loss Past Medical History Cardiac Medical History: Denies: Coronary Artery Disease, Myocardial Infarction, Hypertension Pulmonary Medical History: Denies: Asthma, Bronchitis, Chronic Obstructive Pulmonary Disease (COPD), Pneumonia Neurological Medical History: Denies: Seizures GI Medical History: Denies: Hepatitis, Hiatal Hernia Musculoskeltal Medical History: Denies: Arthritis Hematology: Reports: Anemia - 2005 x1 Denies: Sickle Cell Disease Past Surgical History Past Surgical History: Reports: Hysterectomy, Other - Right hemicolectomy for cancer Denies: Amputation, Mastectomy, Pacemaker Social History Smoking Status: Never Smoker Electronic Cigarette use?: No Family History Parental Family History Reviewed: Yes Children Family History Reviewed: No Sibling(s) Family History Reviewed.: No Medication/Allergy Home Medications: Calcium Carbonate [Calcium] 500 mg PO DAILY 01/15/18 Cholecalciferol (Vitamin D3) [Vitamin D3] 1,000 unit PO DAILY 01/15/18 Glucosamine HCl/Chondro Osman A [Glucosamine Chondroitin Cap] 1 each PO DAILY 01/15/18 Hydrochlorothiazide [Hydrodiuril 25 mg Tablet] 25 mg PO DAILY 06/16/19 Multivitamin [Tab-A-Jena (Multiple Vitamin) Tablet] 1 tab PO DAILY 06/16/19 Omeprazole 20 mg PO DAILY 06/16/19 Allergies/Adverse Reactions: adhesive tape Allergy (Verified 06/16/19 07:58) PEELS OF MY SKIN ADHESI Allergy (Uncoded 06/16/19 07:58) IVP DYE Allergy (Uncoded 06/16/19 07:58) HIVES,RASH Review of Systems Constitutional: PRESENT: as per HPI Gastrointestinal: PRESENT: as per HPI Physical Exam Vital Signs: Temp Pulse Resp BP Pulse Ox 97.4 F 59 L 23 H 114/51 L 94 06/16/19 07:47 06/16/19 07:47 06/16/19 14:01 06/16/19 14:01 06/16/19 14:01 Intake & Output 06/15/19 06/16/19 06/17/19 06:59 06:59 06:59 Intake Total 1000 Balance 1000 Weight 60.3 kg Exam: Her abdomen is soft and nontender at this time. Abdomen is not distended. She is hungry Results Laboratory Results: 06/16/19 09:00 06/16/19 09:00 06/16/19 06/16/19 06/16/19 09:00 09:00 11:15 WBC 8.6 RBC 5.04 Hgb 14.9 Hct 44.9 MCV 89 MCH 29.5 MCHC 33.1 RDW 14.1 H Plt Count 238 Seg Neutrophils % 83.0 H Sodium 139.1 Potassium 4.7 Chloride 102 Carbon Dioxide 32 H Anion Gap 5 BUN 24 H Creatinine 0.79 Est GFR ( Amer) > 60 Glucose 99 Calcium 9.6 Total Bilirubin 0.7 AST 27 Alkaline Phosphatase 74 Total Protein 6.6 Albumin 3.7 Lipase 91.0 Urine Color YELLOW Urine Appearance CLOUDY Urine pH 8.0 Ur Specific [place] 1.013 Urine Protein NEGATIVE Urine Glucose (UA) NEGATIVE Urine Ketones TRACE H Urine Blood NEGATIVE Urine RBC (Auto) 1 Impressions: Abdomen/Pelvis CT 06/16/19 08:23 IMPRESSION: 1. Postoperative findings of a right colectomy. The most distal small bowel and colon are decompressed. There are loops of fecalized small bowel in the low abdomen proximal to the anastomosis measuring up to 3.0 cm (series 3, image 51, series 601, image 41). Findings are concerning for partial obstruction at or near the anastomosis. Bowel transit may be further interrogated by fluoroscopic small bowel follow-through if desired. 2. Sigmoid diverticulosis. Assessment & Plan - Diagnosis (1) Abdominal pain Qualifiers: Abdominal location: right lower quadrant Qualified Code(s): R10.31 - Right lower quadrant pain Is this a current diagnosis for this admission?: Yes - Time Time Spent: 30 to 50 Minutes - Plan Summary Plan Summary: Patient does not look sick at this time. I will try her on p.o. intake and if she is she tolerates that and the pains does not come back then she can be discharged and to be followed up in the surgical clinic for possible colonoscopy.
== END 2019-06-16 14:58 | disposition home or self-care (01) ==
LOC: ER 07:42
DX: R10.31 Right lower quadrant pain (principal); R19.7 Diarrhea, unspecified; R11.0 Nausea; R53.1 Weakness; I10 Essential (primary) hypertension
CPT/HCPCS: 36415; 83690; 85025; 80053; 81001; 74176; J3010; J2405; J7030; 96361; 96374; 96375; 96376; 99284

== ENCOUNTER → 2020-04-13 | Outpatient (CLI) | payer MEDICARE, BC ==
--- NOTE | 2020-04-13 16:16 | RADIOLOGY REPORT (SQ) ---
EXAM DESCRIPTION: TIBIA FIBULA LEFT IMAGES COMPLETED DATE/TIME: 04/13/2020 3:32 pm REASON FOR STUDY: LEFT LEG PAIN M79.605 PAIN IN LEFT LEG COMPARISON: None. NUMBER OF VIEWS: Three views. TECHNIQUE: Two radiographic images acquired of the left tibia and fibula to include the knee and ank le in at least one projection. LIMITATIONS: None. FINDINGS: MINERALIZATION: Osteopenia. BONES: No acute fracture or dislocation. No worrisome bone lesions. Degenerative changes are seen o f the knee. SOFT TISSUES: No obvious swelling or foreign body. OTHER: No other significant finding. IMPRESSION: No evidence of acute osseous injury. Background of osteopenia and degenerative changes. TECHNICAL DOCUMENTATION: JOB ID: [id number] 2010 [employer]- All Rights Reserved Reading location - IP/workstation name: [email or web address]
--- NOTE | 2020-04-14 09:33 | RADIOLOGY REPORT (SQ) ---
EXAM DESCRIPTION: VENOUS UNILATERAL LOWER IMAGES COMPLETED DATE/TIME: 04/13/2020 4:22 pm REASON FOR STUDY: LLE PAIN M79.605 PAIN IN LEFT LEG COMPARISON: None. TECHNIQUE: Dynamic and static holden scale and color images acquired of the left leg venous system. Se lected spectral images acquired with additional compression and augmentation maneuvers. The contralat eral common femoral vein and saphenofemoral junction were also imaged. Images stored on PACS. LIMITATIONS: None. FINDINGS: COMMON FEMORAL: Normal phasicity, compression and augmentation. No visualized echogenic ma terial on holden scale. No defects on color images. FEMORAL: Normal compression and augmentation. No visualized echogenic material on holden scale. No defe cts on color images. POPLITEAL: Normal compression, augmentation. No visualized echogenic material on holden scale. No defec ts on color images. CALF VESSELS: Normal compression, augmentation. No visualized echogenic material on holden scale. No de fects on color images. GSV and SSV: Normal compression, augmentation. No visualized echogenic material on holden scale. No def ects on color images. ANY DEEP VENOUS INSUFFICIENCY: Not evaluated. ANY EVIDENCE OF POPLITEAL CYST: No. OTHER: No other significant finding. CONTRALATERAL COMMON FEMORAL VEIN AND SAPHENOFEMORAL JUNCTION: Normal phasicity, compression and augmentation. No visualized echogenic material on holden scale. No de fects on color images. IMPRESSION: NO EVIDENCE OF DVT OR SVT IN THE LEFT LEG. TECHNICAL DOCUMENTATION: JOB ID: [id number] 2010 [email or web address]- All Rights Reserved Reading location - IP/workstation name: [email or web address]
== END ==
LOC: SP 15:10
PROVIDERS: ATTEND Family Medicine Geriatric Medicine
DX: M79.605 Pain in left leg (principal)
CPT/HCPCS: 93971

== ENCOUNTER → 2020-05-12 | Outpatient (CLI) | payer MEDICARE, BC ==
[~2020-05-12] MED LIST changes: +AMINOPHYLLINE INJ/PF 250 MG/10 ML SDV IV ONE; -CEFAZOLIN 1 GM/D5W RTU 1 GM/50 ML RTUPB IV PRN; -LACTATED RINGERS 1000 ML IV PRN; -LIDOCAINE 0.5% INJ-PF (5 MG/ML) 50 ML SDV SUBCUT PRN; -LIDOCAINE 4% TRANSPARENT DRESSING 5 GM KIT TP PRN; +REGADENOSON INJ 0.4 MG/5 ML DISP.SYRIN IV ONE
--- NOTE | 2020-05-12 18:53 | DRAGON STRESS TEST REPORT ---
INTRAVENOUS LEXISCAN CARDIOLITE STRESS TEST USING SINGLE PHOTON EMMISION COMPUTERIZED TOMOGRAPHIC. DATE OF PROCEDURE: May 12, 2020. INDICATION : Chest pain CARDIAC RISK FACTORS: None reported RESTING EKG: Sinus rhythm, right bundle branch block with secondary ST-T wave changes. STRESS EKG: No significant ST segment changes noted with LexiScan bolus REASON FOR TERMINATION: Protocol. PROCEDURE REPORT: Baseline heart rate 62 beats per minute with blood pressure of 127/57. Patient had no significant complaints. Patient was bolused with Lexiscan 0.4 mg intravenously followed by saline bolus. Heart rate at 2 minutes post bolus 86 with a blood pressure of 159/62. 3 minutes post bolus heart rate 70 with blood pressure of 146/62. No significant EKG changes were noted. Patient had no significant complaints during the procedure or postprocedure. CONCLUSIONS: Normal EKG and hemodynamic response to IV LexiScan. NUCLEAR DATA: At rest the patient was given 10.92 millicuries of technetium 99 sestamibi injected intravenously. As per protocol rest gated SPECT images were obtained. On day of stress test, the patient was given intravenous LexiScan at a dose of 0.4 mg in 5 mL intravenously, followed by flush with normal saline. Subsequently the stress dose of 31.9 millicuries of technetium 99 sestamibi was injected intravenously. As per protocol stress gated images were obtained. NUCLEAR INTERPRETATION: Both raw and processed data were used for interpretation. Visual, qualitative, computer-generated quantitative data was used. There was good myocardial uptake of technetium compound. Motion artifact and soft tissue attenuations were noted. Increased visceral uptake was noted. No definitive areas of transient perfusion defect noted, No definitive areas of fixed perfusion defect or scars noted. EKG gated imaging showed LV EF at 64%, rest and stress gated EF similar visually. T. I D. ratio was 1.00. Lung heart ratio noted to be within normal limits 0.26. No significant extracardiac and abnormal radiotracer activities were noted. RV free wall uptake was noted to be borderline increased consistent with probable mild RVH. IMPRESSION: Also refer to comments under nuclear interpretation. Also test results needs to be interpreted in the context of pretest probability. 1. No definitive areas of transient perfusion defect noted. 2. There is no definitive scintigraphic evidence of myocardial infarction/scar. 3. EKG gated imaging shows left ventricular ejection fraction of approx. 64%. RV uptake was noted to be borderline increased, consistent with probable mild RVH. 4. Clinical correlation requested as worse disease and or balanced ischemia could be missed. In approximately 10% of the cases Lexiscan may not cause adequate vasodilatory stress. RECOMMENDATIONS: Aggressive risk factor modification and medical management. Further evaluation may be needed if continued symptoms or other high risk indicators are noted on clinical evaluation. Close cardiology follow-up is also recommended. Clinical correlation with echocardiogram derived ejection fraction. Inability to exercise by itself can lead to increased cardiovascular event risks. Consider cardiology consultation and or follow-up if clinically indicated. I am available for cardiology evaluation and consultation if requested by the feed elevator worker, unless patient already has a hvac maintenance technician. Dr. Nasrin Aguilar. MRCP Board certified in cardiology and sleep medicine. Board certified in nuclear cardiology, adult echocardiography. [email or web address]
== END ==
LOC: RAD 07:50
PROVIDERS: ATTEND Internal Medicine
DX: R07.9 Chest pain, unspecified (principal); R94.31 Abnormal electrocardiogram [ECG] [EKG]
CPT/HCPCS: 93017; 78452; A9500; J2785; J0280; Q9969

== ENCOUNTER 2020-05-18 12:24 | Emergency (ER) | payer MEDICARE, BC ==
--- NOTE | 2020-05-18 13:31 | ER Document Report ---
ED General - General Chief Complaint: Chest Pain Stated Complaint: CHEST PAIN/DISCOMFORT Primary Care Provider: YOLANDA MAC MD [Primary Care Provider] - Follow up as needed Mode of Arrival: Ambulatory Information source: Patient, [facility] Records Notes: Patient is an 85-year-old female presenting to the emergency department chief complaint of left-sided chest discomfort. Patient states it is a tingly/prickly sensation is been ongoing for a couple of days. Patient states that she was seen last week and had a negative stress test as best as she knows. She has not been given an official answer. There is also a possibility of a remote left lower extremity DVT. Patient denies shortness of breath denies travel history trauma history obvious sick contacts. Patient denies nausea vomiting diarrhea fevers or cold-like symptoms. TRAVEL OUTSIDE OF THE [place] IN LAST 30 DAYS: No - HPI Onset: Last week Onset/Duration: Intermittent Quality of pain: Other - tingling Severity: Mild Pain Level: 1 Associated symptoms: None Exacerbated by: Denies Relieved by: Denies Similar symptoms previously: No Recently seen / treated by doctor: Yes - Related Data Allergies/Adverse Reactions: adhesive tape Allergy (Verified 05/18/20 12:47) PEELS OF MY SKIN ADHESI Allergy (Uncoded 05/18/20 12:47) IVP DYE Allergy (Uncoded 05/18/20 12:47) HIVES,RASH Home Medications: hctz Past Medical History - General Information source: Patient, [facility] Records - Social History Smoking Status: Never Smoker Chew tobacco use (# tins/day): No Frequency of alcohol use: None Drug Abuse: None Lives with: Family Family History: Reviewed & Not Pertinent Patient has suicidal ideation: No Patient has homicidal ideation: No - Past Medical History Cardiac Medical History: Reports: Hx Hypertension Denies: Hx Coronary Artery Disease, Hx Heart Attack Pulmonary Medical History: Denies: Hx Asthma, Hx Bronchitis, Hx COPD, Hx Pneumonia Neurological Medical History: Denies: Hx Cerebrovascular Accident, Hx Seizures Malignancy Medical History: Reports: Hx Breast Cancer, Hx Colorectal Cancer GI Medical History: Reports: Hx Gastroesophageal Reflux Disease. Denies: Hx Hepatitis, Hx Hiatal Hernia, Hx Ulcer Musculoskeletal Medical History: Denies Hx Arthritis Infectious Medical History: Denies: Hx Hepatitis Past Surgical History: Reports: Hx Appendectomy, Hx Bowel Surgery, Hx Hysterectomy, Hx Tubal Ligation, Other - Right hemicolectomy for cancer. Denies: Hx Mastectomy, Hx Open Heart Surgery, Hx Pacemaker - Immunizations Hx Diphtheria, Pertussis, Tetanus Vaccination: No Hx Pneumococcal Vaccination: 05/26/17 Review of Systems - Review of Systems Notes: REVIEW OF SYSTEMS: CONSTITUTIONAL : Denies fever, chills, or sweats. Denies recent illness. EENT: Denies eye, ear, throat, or mouth pain or symptoms. Denies nasal or si nus congestion. CARDIOVASCULAR: Per HPI RESPIRATORY: Denies cough, cold, or chest congestion. Denies shortness of breath, difficulty breathing, or wheezing. GASTROINTESTINAL: Denies abdominal pain. Denies nausea, vomiting, or diarrhea. Denies constipation. GENITOURINARY: Denies difficulty urinating, painful urination, burning, frequency, or blood in urine. MUSCULOSKELETAL: Denies neck or back pain or joint pain or swelling. SKIN: Denies rash or skin lesions. HEMATOLOGIC : Denies easy bruising or bleeding. NEUROLOGICAL: Denies altered mental status or loss of consciousness. Denies headache. Denies weakness or paralysis or loss of use of either side. Denies problems with gait or speech. Denies sensory or motor loss. PSYCHIATRIC: Denies suicidal or homicidal ideations 10 Systems are negative unless otherwise specified above Physical Exam - Vital signs Vitals: Temp Pulse Resp BP Pulse Ox 98.2 F 69 18 152/56 H 96 05/18/20 12:45 05/18/20 12:45 05/18/20 12:45 05/18/20 12:45 05/18/20 12:45 - Notes Notes: PHYSICAL EXAMINATION: GENERAL: Well-appearing, well-nourished and in no acute distress. HEAD: Atraumatic, normocephalic. EYES: Pupils equal round and reactive to light, extraocular movements intact, sclera anicteric, conjunctiva are normal. ENT: nares patent, oropharynx clear without exudates. Moist mucous membranes. NECK: Normal range of motion, supple without lymphadenopathy, no appreciable JVD LUNGS: Lungs clear to auscultation bilaterally and equal. No wheezes rales or rhonchi. HEART: Regular rate and rhythm without murmurs ABDOMEN: Soft, nontender, normal bowel sounds. No guarding, no rebound. No masses appreciated. EXTREMITIES: Active full range of motion, no pitting or edema. No cyanosis. 2+ pulses x4 NEUROLOGICAL: No focal neurological deficits. Moves all extremities spontaneously and on command. SKIN: Warm, Dry, and intact. Normal turgor, no rashes or lesions noted. 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 Review of patient's prior medical records demonstrates no sign of DVT on 13 April 2020. At this time on reevaluation the patient is requesting second troponin for further evaluation I feel this is a reasonable option. Review of the patient's medical record does demonstrate no DVT in March 2020 and her recent stress test was likewise negative. 1728 Repeat troponin at this time is likewise negative. Patient has been reevaluated several times while in the emergency department and no signs of decompensation have been noted. After evaluation of laboratory EKG and radiologic studies I see no signs of pneumonia, pneumothorax, acute myocardial infarction, unstable angina dissection or pulmonary embolism, there are no signs of rib fractures, no signs of acute coronary syndrome and at this time feel the patient is stable for discharge. I have discussed these results with the patient answered all questions and patient is agreeable with discharge at this time. Patient should follow-up with her primary care provider in the next several days for continued monitoring. Patient should immediately return to the emergency department for worsening symptoms to include severe chest pain/tightness or discomfort, worsening shortness of breath, fever greater than 101 or other concerning signs or symptoms. 05/18/20 17:28 - Vital Signs Vital signs: Temp Pulse Resp BP Pulse Ox 98.2 F 69 17 141/76 H 100 05/18/20 12:48 05/18/20 12:45 05/18/20 15:00 05/18/20 13:00 05/18/20 15:00 - Laboratory Result Diagrams: 05/18/20 13:16 05/18/20 13:16 Laboratory results interpreted by me: 05/18/20 05/18/20 13:16 13:16 Lymph % (Auto) 12.6 L Carbon Dioxide 31 H BUN 28 H - Diagnostic Test Radiology reviewed: Reports reviewed - EKG Interpretation by Me EKG shows normal: Sinus rhythm Rate: Normal Rhythm: NSR [place]/QRS: RBBB When compared to previous EKG there are: Changes noted Discharge - Discharge Clinical Impression: Chest discomfort Condition: Stable Disposition: HOME, SELF-CARE Instructions: Chest Pain of Unclear Cause ([facility]) Referrals: YOLANDA MAC MD [Primary Care Provider] - Follow up as needed
--- NOTE | 2020-05-18 13:32 | RADIOLOGY REPORT (SQ) ---
EXAM DESCRIPTION: CHEST SINGLE VIEW IMAGES COMPLETED DATE/TIME: 05/18/2020 1:20 pm REASON FOR STUDY: chest pain COMPARISON: 03/02/2019 EXAM PARAMETERS: NUMBER OF VIEWS: One view. TECHNIQUE: Single frontal radiographic view of the chest acquired. RADIATION DOSE: NA LIMITATIONS: None. FINDINGS: LUNGS AND PLEURA: Hyperexpansion. No consolidation, pneumothorax or effusion. MEDIASTINUM AND HILAR STRUCTURES: No masses. Contour normal. HEART AND VASCULAR STRUCTURES: Heart normal in size. Normal vasculature. BONES: No acute findings. HARDWARE: None in the chest. OTHER: No other significant finding. IMPRESSION: COPD. No acute findings in the chest. TECHNICAL DOCUMENTATION: JOB ID: [id number] 2010 [employer]- All Rights Reserved Reading location - IP/workstation name: [email or web address]
[2020-05-18 13:36] LABS: ABSOLUTE BASOPHILS # (AUTO) 0.1 10^3/uL (0.0-0.2); ABSOLUTE MONOCYTES (AUTO) 0.8 10^3/uL (0.1-1.4); ABSOLUTE NEUT (AUTO) 6.2 10^3/uL (1.7-8.2); BASOPHILS % (AUTO) 0.8 % (0-2); EOSINOPHILS % (AUTO) 0.4 % (0-6); HEMATOCRIT 43.7 % (36.0-47.0); HEMOGLOBIN 15.1 g/dL (12.0-15.5); LYMPHOCYTES % (AUTO) 12.6 % (13-45); MEAN CORPUSCULAR HEMOGLOBIN 30.8 pg (27.0-33.4); MEAN CORPUSCULAR HGB CONC 34.6 g/dL (32.0-36.0); MEAN CORPUSCULAR VOLUME 89 fl (80-97); MONOCYTES % (AUTO) 9.5 % (3-13); PLATELET COUNT 235 10^3/uL (150-450); RED CELL DISTRIBUTION WIDTH 13.9 % (11.5-14.0); SEGMENTED NEUTROPHILS % (AUTO) 76.7 % (42-78); TOTAL CELLS COUNTED % (AUTO) 100 %; WHITE BLOOD COUNT 8.1 10^3/uL (4.0-10.5)
[2020-05-18 13:50] LABS: ALKALINE PHOSPHATASE 70 U/L (38-126); ANION GAP 5 (5-19); ASPARTATE AMINO TRANSFERASE 27 U/L (14-36); BILIRUBIN,DIRECT 0.3 mg/dL (0.0-0.4); BILIRUBIN,TOTAL 0.6 mg/dL (0.2-1.3); BLOOD UREA NITROGEN 28 mg/dL (7-20); CALCIUM 9.8 mg/dL (8.4-10.2); CARBON DIOXIDE 31 mmol/L (22-30); CHLORIDE 101 mmol/L (98-107); CREATINE KINASE 57 U/L (30-135); GLUCOSE 108 mg/dL (75-110); POTASSIUM 4.2 mmol/L (3.6-5.0); TOTAL PROTEIN 6.6 g/dL (6.3-8.2)
[2020-05-18 14:01] LABS: CREATINE KINASE MB 1.53 ng/mL (<4.55)
[2020-05-18 14:03] LABS: TROPONIN I < 0.012 ng/mL
--- NOTE | 2020-05-18 14:42 | EKG REPORT ---
SEVERITY:- ABNORMAL ECG - SINUS RHYTHM PROBABLE LEFT ATRIAL ABNORMALITY RIGHT BUNDLE BRANCH BLOCK BORDERLINE INFERIOR Q WAVES : Confirmed by: Violet Rosado MD 18-May-2020 14:41:39
[2020-05-18 18:27] VITALS: BP 148/67
== END 2020-05-18 18:25 | disposition home or self-care (01) ==
LOC: ER 12:24
DX: R20.2 Paresthesia of skin (principal); R07.9 Chest pain, unspecified; I45.10 Unspecified right bundle-branch block; J44.9 Chronic obstructive pulmonary disease, unspecified; I10 Essential (primary) hypertension; Z79.899 Other long term (current) drug therapy; Z91.048 Other nonmedicinal substance allergy status; Z91.041 Radiographic dye allergy status; Z85.3 Personal history of malignant neoplasm of breast; Z85.048 Personal history of other malignant neoplasm of rectum, rectosigmoid junction, and anus
CPT/HCPCS: 36415; 71045; 80053; 82550; 82553; 83735; 84484; 85025; 93005; 93010; 99285